=== PATIENT | male | born 1980 | race Caucasian/White ===

== ENCOUNTER 2021-11-26 09:01 | Inpatient (IN) | payer MEDICARE, MEDICAID ==
[~2021-11-26] VITALS: Ht 177.8 cm; Wt 54.8 kg
[~2021-11-26 09:01] MED LIST: LISI20TA28; WARF5TAB71
[2021-11-26] MEDS ORDERED: SODIUM CHLORIDE 0.9% 1,000 ML IV ONE (09:15)
[2021-11-26] MEDS ORDERED: DIPHENOXYLATE W/ATROPINE 2.5 MG TAB PO ONE (09:30)
[2021-11-26 10:07] LABS: Albumin 3.2 g/dL (3.4-5.0); Calcium 9.6 mg/dL (8.5-10.1); Potassium 3.2 mmol/L (3.5-5.1)
[2021-11-26 10:08] LABS: Basophils # (auto) 0.3 10 ^3/uL (0-0.2); Basophils % (auto) 3.1 % (0.0-2.0); Eosinophils # (auto) 0.1 10 ^3/uL (0-0.8); Eosinophils % (auto) 1.7 % (0.0-7.0); Hemoglobin 14.3 g/dL (13.5-17.5); Lymphocytes % (auto) 11.8 % (10.0-50.0); Mean Corpuscular Hemoglobin 30.4 pg (28.0-32.0); Mean Corpuscular Hgb Conc. 34.8 g/dL (32.0-36.0); Mean Corpuscular Volume 87.4 fL (80.0-100.0); Monocytes # (auto) 0.6 10 ^3/uL (0-1.3); Monocytes % (auto) 7.2 % (0.0-12.0); Neutrophils # (auto) 6.2 10 ^3/uL (1.6-8.6); Neutrophils % (auto) 76.2 % (37.0-80.0); Nucleated Red Blood Cells % 0.3 %; Red Blood Cells 4.69 10^6/uL (4.5-5.90); Red Cell Distribution Width 13.4 % (11.8-14.3); White Blood Cell 8.1 10^3/uL (4.4-10.8)
[2021-11-26 10:13] LABS: BUN/Creatinine Ratio 14.5; Bilirubin, Total 0.5 mg/dL (0.2-1.0)
[2021-11-26] MEDS ORDERED: DOCUSATE SOD 100 MG CAP PO PRN (10:15)
[2021-11-26] MEDS ORDERED: ACETAMINOPHEN 325 MG TAB PO PRN (10:15)
[2021-11-26] MEDS: MORPHINE SULFATE 4 MG/ML SYR/VIAL IV PRN ×3 (12:43→20:33)
[2021-11-26 14:00] VITALS: BP 117/91
[2021-11-26 14:29] VITALS: BP 117/91
[2021-11-26] MEDS: SODIUM CHLORIDE 0.9% 1,000 ML IV SCH (15:00)
[2021-11-26 16:00] VITALS: BP 132/84
[2021-11-26] MEDS: ONDANSETRON HCL 4 MG/2 ML VIAL IV PRN (20:34)
[2021-11-26] MEDS: PANTOPRAZOLE 40 MG/10 ML VIAL INJ IV SCH (23:37)
[2021-11-27] MEDS: SODIUM CHLORIDE 0.9% 1,000 ML IV SCH (01:02)
[2021-11-27 01:48] VITALS: BP 148/102
[2021-11-27 05:00] VITALS: BP 133/73
[2021-11-27 09:00] VITALS: BP 150/65
[2021-11-27] MEDS ORDERED: cefTRIAXone 1GM/50ML D5W 50 ML IV ONE (09:45)
[2021-11-27] MEDS ORDERED: ENOXAPARIN SOD 30 MG/0.3 ML SYRINGE SC SCH (10:00)
[2021-11-27] MEDS: PANTOPRAZOLE 40 MG/10 ML VIAL INJ IV SCH ×2 (10:00→20:10)
[2021-11-27 10:58] LABS: Albumin 2.9 g/dL (3.4-5.0); Calcium 8.7 mg/dL (8.5-10.1); Potassium 3.3 mmol/L (3.5-5.1)
[2021-11-27 11:03] LABS: BUN/Creatinine Ratio 13.6; Bilirubin, Total 0.6 mg/dL (0.2-1.0)
[2021-11-27] MEDS ORDERED: amLODIPine BESYLATE 5 MG TAB PO ONE (12:00)
[2021-11-27] MEDS: LACTATED RINGER'S 1,000 ML IV SCH (12:00)
[2021-11-27 12:33] VITALS: BP 154/93
[2021-11-27] MEDS: metroNIDAZOLE 500MG/100ML 100 ML IV SCH ×2 (14:00→20:10)
[2021-11-27 16:44] VITALS: BP 155/92
[2021-11-27] MEDS: MORPHINE SULFATE 4 MG/ML SYR/VIAL IV PRN (20:10)
[2021-11-27] MEDS: ONDANSETRON HCL 4 MG/2 ML VIAL IV PRN (20:10)
[2021-11-27] MEDS: HYDROcodone-ACET 5/325MG TAB PO PRN (21:51)
[2021-11-27 21:54] VITALS: BP 144/96
[2021-11-28] MEDS: LACTATED RINGER'S 1,000 ML IV SCH (01:30)
[2021-11-28] MEDS: MORPHINE SULFATE 4 MG/ML SYR/VIAL IV PRN ×4 (04:44→22:51)
[2021-11-28] MEDS: ONDANSETRON HCL 4 MG/2 ML VIAL IV PRN ×4 (04:45→22:52)
[2021-11-28] MEDS: metroNIDAZOLE 500MG/100ML 100 ML IV SCH ×3 (05:04→22:50)
[2021-11-28 05:12] VITALS: BP 143/95
[2021-11-28 06:19] LABS: Albumin 2.8 g/dL (3.4-5.0); BUN/Creatinine Ratio 11.8; Calcium 8.7 mg/dL (8.5-10.1); Potassium 3.5 mmol/L (3.5-5.1)
[2021-11-28 06:22] LABS: Bilirubin, Total 0.5 mg/dL (0.2-1.0); Total Protein 6.9 g/dL (6.4-8.2)
[2021-11-28 06:40] LABS: INR 2.13 (0.9-1.15)
[2021-11-28 08:30] VITALS: BP 150/108
[2021-11-28] MEDS: PANTOPRAZOLE 40 MG/10 ML VIAL INJ IV SCH ×2 (10:11→22:50)
[2021-11-28] MEDS: amLODIPine BESYLATE 5 MG TAB PO SCH (10:12)
[2021-11-28] MEDS: cefTRIAXone 1GM/50ML D5W 50 ML IV SCH (10:13)
[2021-11-28] MEDS: ENOXAPARIN SOD 40 MG/0.4 ML SYRINGE SC SCH (10:14)
[2021-11-28 12:30] VITALS: BP 146/115
[2021-11-28 17:00] VITALS: BP 165/93
[2021-11-28] MEDS: hydrALAZINE HCL 20 MG/ML VL IV PRN (18:15)
[2021-11-28 22:00] VITALS: BP 154/96
[2021-11-29] MEDS: TEMAZEPAM 15 MG CAP PO PRN
[2021-11-29] MEDS: MORPHINE SULFATE 4 MG/ML SYR/VIAL IV PRN ×4 (04:48→20:05)
[2021-11-29] MEDS: ONDANSETRON HCL 4 MG/2 ML VIAL IV PRN (04:49)
[2021-11-29 05:00] VITALS: BP 152/48
[2021-11-29 05:34] LABS: Basophils # (auto) 0 10 ^3/uL (0-0.2); Basophils % (auto) 0.6 % (0.0-2.0); Eosinophils # (auto) 0 10 ^3/uL (0-0.8); Eosinophils % (auto) 0.6 % (0.0-7.0); Hematocrit 39.9 % (41.0-53.0); Lymphocytes # (auto) 1.3 10 ^3/uL (0.4-5.4); Lymphocytes % (auto) 15.5 % (10.0-50.0); Mean Corpuscular Hemoglobin 30.4 pg (28.0-32.0); Mean Corpuscular Volume 86.8 fL (80.0-100.0); Monocytes # (auto) 0.8 10 ^3/uL (0-1.3); Monocytes % (auto) 8.9 % (0.0-12.0); Neutrophils # (auto) 6.3 10 ^3/uL (1.6-8.6); Neutrophils % (auto) 74.4 % (37.0-80.0); Nucleated Red Blood Cells % 0.1 %; Red Cell Distribution Width 13.9 % (11.8-14.3); White Blood Cell 8.4 10^3/uL (4.4-10.8)
[2021-11-29 05:39] VITALS: BP 109/73
[2021-11-29] MEDS: metroNIDAZOLE 500MG/100ML 100 ML IV SCH ×4 (05:53→22:00)
[2021-11-29 09:00] VITALS: BP 150/102
[2021-11-29] MEDS: ENOXAPARIN SOD 40 MG/0.4 ML SYRINGE SC SCH (09:23)
[2021-11-29] MEDS: LACTULOSE 20Gm/30ML SOLN PO SCH ×3 (09:24→22:00)
[2021-11-29] MEDS: PANTOPRAZOLE 40 MG/10 ML VIAL INJ IV SCH ×3 (09:24→22:00)
[2021-11-29] MEDS: amLODIPine BESYLATE 5 MG TAB PO SCH (09:24)
[2021-11-29] MEDS: cefTRIAXone 1GM/50ML D5W 50 ML IV SCH (09:24)
[2021-11-29] MEDS: HYDROcodone-ACET 5/325MG TAB PO PRN (12:32)
[2021-11-29 13:00] VITALS: BP 138/94
[2021-11-29] MEDS ORDERED: AMLO-489 PO (13:41)
[2021-11-29] MEDS ORDERED: TRAZ1TAB12 PO (13:41)
[2021-11-29] MEDS ORDERED: ZOLP10TA6 PO (13:41)
[2021-11-29] MEDS ORDERED: BACL20TA PO (13:41)
[2021-11-29] MEDS: BACLOFEN 10 MG TAB PO SCH ×2 (14:49→21:13)
[2021-11-29 17:00] VITALS: BP 138/95
[2021-11-29] MEDS ORDERED: LISI-716 PO (18:36)
[2021-11-29] MEDS ORDERED: HYDR-4072 PO (18:36)
[2021-11-29] MEDS ORDERED: LORA1TAB23 PO (18:36)
[2021-11-29] MEDS ORDERED: WARF5TAB8 PO (18:36)
[2021-11-29] MEDS ORDERED: ENOXAPARIN SOD 60 MG/0.6 ML SYRINGE SC ONE (20:30)
[2021-11-29 22:00] VITALS: BP 145/92
[2021-11-29] MEDS: ENOXAPARIN SOD 60 MG/0.6 ML SYRINGE SC SCH (22:00)
[2021-11-30 05:00] VITALS: BP 140/71
[2021-11-30] MEDS: BACLOFEN 10 MG TAB PO SCH ×2 (05:26→15:22)
[2021-11-30] MEDS: metroNIDAZOLE 500MG/100ML 100 ML IV SCH ×2 (05:26→15:02)
[2021-11-30 06:33] LABS: Basophils # (auto) 0 10 ^3/uL (0-0.2); Basophils % (auto) 0.7 % (0.0-2.0); Eosinophils # (auto) 0.1 10 ^3/uL (0-0.8); Eosinophils % (auto) 1.9 % (0.0-7.0); Hematocrit 37.9 % (41.0-53.0); Hemoglobin 13.5 g/dL (13.5-17.5); Lymphocytes % (auto) 14.9 % (10.0-50.0); Mean Corpuscular Hemoglobin 30.8 pg (28.0-32.0); Mean Corpuscular Hgb Conc. 35.7 g/dL (32.0-36.0); Mean Corpuscular Volume 86.5 fL (80.0-100.0); Monocytes # (auto) 0.7 10 ^3/uL (0-1.3); Monocytes % (auto) 10.2 % (0.0-12.0); Neutrophils # (auto) 4.7 10 ^3/uL (1.6-8.6); Neutrophils % (auto) 72.3 % (37.0-80.0); Nucleated Red Blood Cells % 0.1 %; Red Blood Cells 4.38 10^6/uL (4.5-5.90); Red Cell Distribution Width 13.8 % (11.8-14.3); White Blood Cell 6.5 10^3/uL (4.4-10.8)
[2021-11-30 06:40] LABS: INR 1.85 (0.9-1.15)
[2021-11-30 06:50] LABS: Albumin 2.6 g/dL (3.4-5.0); BUN/Creatinine Ratio 7.2; Bilirubin, Total 0.4 mg/dL (0.2-1.0); Calcium 8.4 mg/dL (8.5-10.1); Total Protein 6.4 g/dL (6.4-8.2)
[2021-11-30 07:50] LABS: Potassium 2.6 mmol/L (3.5-5.1)
[2021-11-30] MEDS ORDERED: POTASSIUM CHL 20 Meq TABLET PO ONE (08:00)
[2021-11-30] MEDS: HYDROcodone-ACET 5/325MG TAB PO PRN (08:04)
[2021-11-30] MEDS: LACTULOSE 20Gm/30ML SOLN PO SCH (08:06)
[2021-11-30] MEDS: PANTOPRAZOLE 40 MG/10 ML VIAL INJ IV SCH (08:23)
[2021-11-30] MEDS: POTASSIUM CHL 10MEQ/50ML 50 ML IV SCH ×4 (08:23→13:54)
[2021-11-30] MEDS: FLORASTOR (S. BOULARDII) 250 MG CAP PO SCH (08:23)
[2021-11-30] MEDS: amLODIPine BESYLATE 5 MG TAB PO SCH (08:24)
[2021-11-30] MEDS: ENOXAPARIN SOD 60 MG/0.6 ML SYRINGE SC SCH (08:24)
[2021-11-30 09:20] VITALS: BP 163/103
[2021-11-30] MEDS ORDERED: amLODIPine BESYLATE 5 MG TAB PO SCH (10:00)
[2021-11-30 12:37] VITALS: BP 152/104
[2021-11-30] MEDS: MORPHINE SULFATE INJECTION 2 MG/ML SYRG IV PRN ×2 (13:05→20:44)
[2021-11-30 13:49] LABS: Urine Bacteria NONE SEEN /hpf (None Seen); Urine Blood 1+ /uL (Negative); Urine Hyaline Cast FEW /lpf (0 - 2); Urine Specific Gravity 1.017 (1.001-1.035); Urine WBC 3 /hpf (0 - 3)
[2021-11-30 14:07] LABS: Protein, Urine 1312.3 mg/dL (0.0-11.9)
[2021-11-30 14:57] VITALS: BP 144/94
[2021-11-30] MEDS ORDERED: LORazepam 2MG/ML-1ML VIAL IV PRN (15:00)
[2021-11-30] MEDS: ONDANSETRON HCL 4 MG/2 ML VIAL IV PRN ×2 (16:43→16:46)
[2021-11-30] MEDS ORDERED: WARFARIN SODIUM 1 MG TAB PO ONE (17:00)
[2021-11-30] MEDS: cefTRIAXone 1GM/50ML D5W 50 ML IV SCH (17:30)
[2021-11-30 22:00] VITALS: BP 139/84
[2021-11-30 22:47] LABS: Albumin 2.7 g/dL (3.4-5.0); BUN/Creatinine Ratio 6.1; Calcium 8.3 mg/dL (8.5-10.1); Magnesium 2.1 mg/dL (1.6-2.6); Potassium 3.5 mmol/L (3.5-5.1)
[2021-11-30 22:50] LABS: Bilirubin, Total 0.3 mg/dL (0.2-1.0); Total Protein 6.2 g/dL (6.4-8.2)
[2021-12-01 05:00] VITALS: BP 136/67
[2021-12-01] MEDS: metroNIDAZOLE 500MG/100ML 100 ML IV SCH ×3 (06:00→22:33)
[2021-12-01] MEDS: MORPHINE SULFATE INJECTION 2 MG/ML SYRG IV PRN ×4 (06:42→23:55)
[2021-12-01 07:04] LABS: Basophils # (auto) 0 10 ^3/uL (0-0.2); Basophils % (auto) 0.6 % (0.0-2.0); Eosinophils # (auto) 0.1 10 ^3/uL (0-0.8); Eosinophils % (auto) 1.7 % (0.0-7.0); Hematocrit 36.1 % (41.0-53.0); Hemoglobin 12.6 g/dL (13.5-17.5); Lymphocytes # (auto) 1.1 10 ^3/uL (0.4-5.4); Lymphocytes % (auto) 18.3 % (10.0-50.0); Mean Corpuscular Hemoglobin 30.4 pg (28.0-32.0); Mean Corpuscular Hgb Conc. 34.8 g/dL (32.0-36.0); Mean Corpuscular Volume 87.4 fL (80.0-100.0); Monocytes # (auto) 0.7 10 ^3/uL (0-1.3); Neutrophils # (auto) 4.1 10 ^3/uL (1.6-8.6); Neutrophils % (auto) 68.4 % (37.0-80.0); Nucleated Red Blood Cells % 0.1 %; Red Blood Cells 4.14 10^6/uL (4.5-5.90); Red Cell Distribution Width 13.8 % (11.8-14.3)
[2021-12-01 07:14] LABS: INR 2.32 (0.9-1.15); Partial Thromboplastin Time 47.7 sec (23.6-33.0)
[2021-12-01 08:00] VITALS: BP 115/89
[2021-12-01] MEDS: cefTRIAXone 1GM/50ML D5W 50 ML IV SCH (08:48)
[2021-12-01] MEDS: PANTOPRAZOLE 40 MG/10 ML VIAL INJ IV SCH ×2 (09:34→22:06)
[2021-12-01] MEDS: FLORASTOR (S. BOULARDII) 250 MG CAP PO SCH (09:34)
[2021-12-01] MEDS: ENOXAPARIN SOD 60 MG/0.6 ML SYRINGE SC SCH ×2 (09:35→22:06)
[2021-12-01] MEDS: HYDROcodone-ACET 5/325MG TAB PO PRN ×2 (09:35→19:57)
[2021-12-01] MEDS: amLODIPine BESYLATE 5 MG TAB PO SCH (09:37)
[2021-12-01] MEDS: ONDANSETRON HCL 4 MG/2 ML VIAL IV PRN (12:15)
[2021-12-01 12:30] VITALS: BP 116/80
[2021-12-01 17:00] VITALS: BP 112/72
[2021-12-01 19:58] VITALS: BP 123/81
[2021-12-02] MEDS: MORPHINE SULFATE INJECTION 2 MG/ML SYRG IV PRN ×4 (04:15→22:06)
[2021-12-02 04:50] VITALS: BP 140/87
[2021-12-02 04:54] VITALS: BP 115/89
[2021-12-02] MEDS: metroNIDAZOLE 500MG/100ML 100 ML IV SCH ×3 (06:17→22:40)
[2021-12-02 07:16] LABS: Basophils # (auto) 0 10 ^3/uL (0-0.2); Basophils % (auto) 0.8 % (0.0-2.0); Eosinophils # (auto) 0.1 10 ^3/uL (0-0.8); Eosinophils % (auto) 2.2 % (0.0-7.0); Hematocrit 35.7 % (41.0-53.0); Hemoglobin 12.1 g/dL (13.5-17.5); Lymphocytes # (auto) 1.4 10 ^3/uL (0.4-5.4); Lymphocytes % (auto) 25.2 % (10.0-50.0); Mean Corpuscular Hemoglobin 29.7 pg (28.0-32.0); Mean Corpuscular Hgb Conc. 33.9 g/dL (32.0-36.0); Mean Corpuscular Volume 87.7 fL (80.0-100.0); Monocytes # (auto) 0.7 10 ^3/uL (0-1.3); Monocytes % (auto) 11.7 % (0.0-12.0); Neutrophils # (auto) 3.4 10 ^3/uL (1.6-8.6); Neutrophils % (auto) 60.1 % (37.0-80.0); Nucleated Red Blood Cells % 0.1 %; Red Blood Cells 4.07 10^6/uL (4.5-5.90); Red Cell Distribution Width 14.1 % (11.8-14.3); White Blood Cell 5.6 10^3/uL (4.4-10.8)
[2021-12-02 07:22] LABS: INR 3.18 (0.9-1.15); Partial Thromboplastin Time 50.4 sec (23.6-33.0)
[2021-12-02 07:26] LABS: Calcium 7.8 mg/dL (8.5-10.1)
[2021-12-02 07:28] LABS: BUN/Creatinine Ratio 4.3
[2021-12-02 07:39] LABS: Potassium 2.8 mmol/L (3.5-5.1)
[2021-12-02] MEDS ORDERED: POTASSIUM CHL 20 Meq TABLET PO ONE ×2 (08:15→12:15)
[2021-12-02 08:30] VITALS: BP 143/94
[2021-12-02] MEDS: HYDROcodone-ACET 5/325MG TAB PO PRN (08:38)
[2021-12-02] MEDS: cefTRIAXone 1GM/50ML D5W 50 ML IV SCH (09:54)
[2021-12-02] MEDS: PANTOPRAZOLE 40 MG/10 ML VIAL INJ IV SCH ×2 (09:56→22:06)
[2021-12-02] MEDS: FLORASTOR (S. BOULARDII) 250 MG CAP PO SCH (09:56)
[2021-12-02] MEDS: amLODIPine BESYLATE 5 MG TAB PO SCH (09:56)
[2021-12-02 13:00] VITALS: BP 149/105
[2021-12-02 17:00] VITALS: BP 145/99
[2021-12-02 22:00] VITALS: BP 160/105
[2021-12-03] MEDS: MORPHINE SULFATE INJECTION 2 MG/ML SYRG IV PRN ×3 (02:30→12:49)
[2021-12-03 05:00] VITALS: BP 154/108
[2021-12-03] MEDS: metroNIDAZOLE 500MG/100ML 100 ML IV SCH ×2 (06:00→13:27)
[2021-12-03 09:00] VITALS: BP 151/103
[2021-12-03] MEDS: amLODIPine BESYLATE 5 MG TAB PO SCH (10:04)
[2021-12-03] MEDS: PANTOPRAZOLE 40 MG/10 ML VIAL INJ IV SCH ×2 (10:04→21:37)
[2021-12-03] MEDS: cefTRIAXone 1GM/50ML D5W 50 ML IV SCH (10:05)
[2021-12-03] MEDS: FLORASTOR (S. BOULARDII) 250 MG CAP PO SCH (10:05)
[2021-12-03] MEDS: HYDROcodone-ACET 5/325MG TAB PO PRN ×2 (10:05→21:37)
[2021-12-03 10:55] LABS: INR 2.58 (0.9-1.15); Partial Thromboplastin Time 43.3 sec (23.6-33.0)
[2021-12-03 11:07] LABS: Basophils # (auto) 0.1 10 ^3/uL (0-0.2); Basophils % (auto) 2.3 % (0.0-2.0); Eosinophils # (auto) 0 10 ^3/uL (0-0.8); Eosinophils % (auto) 0.8 % (0.0-7.0); Hematocrit 39.7 % (41.0-53.0); Hemoglobin 13.6 g/dL (13.5-17.5); Lymphocytes # (auto) 0.9 10 ^3/uL (0.4-5.4); Lymphocytes % (auto) 18.8 % (10.0-50.0); Mean Corpuscular Hemoglobin 30.1 pg (28.0-32.0); Mean Corpuscular Hgb Conc. 34.3 g/dL (32.0-36.0); Mean Corpuscular Volume 87.8 fL (80.0-100.0); Monocytes # (auto) 0.5 10 ^3/uL (0-1.3); Monocytes % (auto) 10.6 % (0.0-12.0); Neutrophils # (auto) 3.2 10 ^3/uL (1.6-8.6); Neutrophils % (auto) 67.5 % (37.0-80.0); Nucleated Red Blood Cells % 0.4 %; Red Blood Cells 4.52 10^6/uL (4.5-5.90); Red Cell Distribution Width 14.1 % (11.8-14.3); White Blood Cell 4.8 10^3/uL (4.4-10.8)
[2021-12-03 12:30] VITALS: BP 156/101
[2021-12-03] MEDS: hydrALAZINE HCL 20 MG/ML VL IV PRN (12:47)
[2021-12-03] MEDS ORDERED: chlorproMAZINE HCL 25 MG TAB PO PRN (13:00)
[2021-12-03] MEDS ORDERED: cloNIDine HCL 0.1 MG TAB PO ONE (14:15)
[2021-12-03 15:20] VITALS: BP 132/90
[2021-12-03] MEDS ORDERED: WARFARIN SODIUM 1 MG TAB PO ONE (17:00)
[2021-12-03 17:35] VITALS: BP 133/93
[2021-12-03 22:00] VITALS: BP 135/97
[2021-12-04] MEDS: TEMAZEPAM 15 MG CAP PO PRN ×2 (01:59→22:11)
[2021-12-04 02:00] VITALS: BP 126/89
[2021-12-04 05:00] VITALS: BP 111/78
[2021-12-04] MEDS: HYDROcodone-ACET 5/325MG TAB PO PRN (06:49)
[2021-12-04 07:49] LABS: INR 2.59 (0.9-1.15); Partial Thromboplastin Time 42.1 sec (23.6-33.0)
[2021-12-04 07:50] LABS: Basophils # (auto) 0 10 ^3/uL (0-0.2); Basophils % (auto) 0.5 % (0.0-2.0); Eosinophils # (auto) 0.1 10 ^3/uL (0-0.8); Eosinophils % (auto) 1.6 % (0.0-7.0); Hematocrit 35.5 % (41.0-53.0); Hemoglobin 12.4 g/dL (13.5-17.5); Lymphocytes # (auto) 0.9 10 ^3/uL (0.4-5.4); Lymphocytes % (auto) 18.6 % (10.0-50.0); Mean Corpuscular Hemoglobin 30.5 pg (28.0-32.0); Mean Corpuscular Hgb Conc. 34.9 g/dL (32.0-36.0); Mean Corpuscular Volume 87.4 fL (80.0-100.0); Monocytes # (auto) 0.7 10 ^3/uL (0-1.3); Monocytes % (auto) 13.9 % (0.0-12.0); Neutrophils # (auto) 3.2 10 ^3/uL (1.6-8.6); Neutrophils % (auto) 65.4 % (37.0-80.0); Nucleated Red Blood Cells % 0.2 %; Red Blood Cells 4.07 10^6/uL (4.5-5.90); White Blood Cell 4.9 10^3/uL (4.4-10.8)
[2021-12-04] MEDS: amLODIPine BESYLATE 5 MG TAB PO SCH (09:18)
[2021-12-04] MEDS: PANTOPRAZOLE 40 MG/10 ML VIAL INJ IV SCH ×2 (09:18→21:38)
[2021-12-04] MEDS: cefTRIAXone 1GM/50ML D5W 50 ML IV SCH (09:18)
[2021-12-04] MEDS: FLORASTOR (S. BOULARDII) 250 MG CAP PO SCH (09:19)
[2021-12-04 09:25] VITALS: BP 139/91
[2021-12-04] MEDS: MORPHINE SULFATE INJECTION 2 MG/ML SYRG IV PRN ×3 (09:29→19:03)
[2021-12-04 12:36] VITALS: BP 128/90
[2021-12-04 16:46] VITALS: BP 144/94
[2021-12-04] MEDS ORDERED: WARFARIN SODIUM 1 MG TAB PO ONE (17:00)
[2021-12-04 22:00] VITALS: BP 144/90
[2021-12-05 05:03] VITALS: BP 145/92
[2021-12-05] MEDS: HYDROcodone-ACET 5/325MG TAB PO PRN (06:00)
[2021-12-05 07:02] LABS: INR 1.76 (0.9-1.15)
[2021-12-05] MEDS: MORPHINE SULFATE INJECTION 2 MG/ML SYRG IV PRN ×3 (07:55→17:11)
[2021-12-05 08:47] VITALS: BP 145/92
[2021-12-05] MEDS: PANTOPRAZOLE 40 MG/10 ML VIAL INJ IV SCH ×2 (08:49→21:17)
[2021-12-05] MEDS: FLORASTOR (S. BOULARDII) 250 MG CAP PO SCH (08:49)
[2021-12-05] MEDS: amLODIPine BESYLATE 5 MG TAB PO SCH (08:49)
[2021-12-05] MEDS: cefTRIAXone 1GM/50ML D5W 50 ML IV SCH (08:57)
[2021-12-05 11:46] VITALS: BP 138/82
[2021-12-05 16:25] VITALS: BP 164/89
[2021-12-05] MEDS: hydrALAZINE HCL 20 MG/ML VL IV PRN (16:31)
[2021-12-05 17:00] VITALS: BP 164/89
[2021-12-05] MEDS ORDERED: WARFARIN SODIUM 1 MG TAB PO ONE (17:00)
[2021-12-05] MEDS ORDERED: LORazepam 2MG/ML-1ML VIAL IV PRN (19:15)
[2021-12-05] MEDS: METOPROLOL TARTRATE 1MG/1ML-5ML VIAL IV PRN (20:15)
[2021-12-05 21:00] VITALS: BP 146/93
[2021-12-06] MEDS: HYDROcodone-ACET 5/325MG TAB PO PRN ×3 (01:48→22:30)
[2021-12-06 05:00] VITALS: BP 133/86
[2021-12-06] MEDS: MORPHINE SULFATE INJECTION 2 MG/ML SYRG IV PRN ×3 (06:04→20:00)
[2021-12-06 06:31] LABS: INR 2.41 (0.9-1.15)
[2021-12-06 06:37] LABS: Basophils # (auto) 0 10 ^3/uL (0-0.2); Eosinophils # (auto) 0.1 10 ^3/uL (0-0.8); Eosinophils % (auto) 2.3 % (0.0-7.0); Hemoglobin 12.8 g/dL (13.5-17.5); Lymphocytes # (auto) 1.4 10 ^3/uL (0.4-5.4); Lymphocytes % (auto) 28.8 % (10.0-50.0); Mean Corpuscular Hemoglobin 30.2 pg (28.0-32.0); Mean Corpuscular Hgb Conc. 34.6 g/dL (32.0-36.0); Mean Corpuscular Volume 87.4 fL (80.0-100.0); Monocytes # (auto) 0.5 10 ^3/uL (0-1.3); Monocytes % (auto) 11.2 % (0.0-12.0); Neutrophils # (auto) 2.7 10 ^3/uL (1.6-8.6); Neutrophils % (auto) 56.7 % (37.0-80.0); Nucleated Red Blood Cells % 0.4 %; Red Blood Cells 4.24 10^6/uL (4.5-5.90); Red Cell Distribution Width 14.1 % (11.8-14.3); White Blood Cell 4.7 10^3/uL (4.4-10.8)
[2021-12-06 08:31] VITALS: BP 148/108
[2021-12-06] MEDS: cefTRIAXone 1GM/50ML D5W 50 ML IV SCH (09:00)
[2021-12-06] MEDS: PANTOPRAZOLE 40 MG/10 ML VIAL INJ IV SCH ×2 (10:05→22:29)
[2021-12-06] MEDS: METOPROLOL TARTRATE 1MG/1ML-5ML VIAL IV PRN (10:05)
[2021-12-06] MEDS: FLORASTOR (S. BOULARDII) 250 MG CAP PO SCH (10:05)
[2021-12-06 12:30] VITALS: BP 122/87
[2021-12-06 16:37] VITALS: BP 147/103
[2021-12-06] MEDS ORDERED: WARFARIN SODIUM 1 MG TAB PO ONE (17:00)
[2021-12-06 22:00] VITALS: BP 135/76
[2021-12-07] MEDS: MORPHINE SULFATE INJECTION 2 MG/ML SYRG IV PRN ×2 (01:07→06:07)
[2021-12-07] MEDS: TEMAZEPAM 15 MG CAP PO PRN ×2 (01:12→21:17)
[2021-12-07 05:00] VITALS: BP 137/87
[2021-12-07 07:05] LABS: INR 3.27 (0.9-1.15)
[2021-12-07 07:17] LABS: Potassium 3.2 mmol/L (3.5-5.1)
[2021-12-07 07:29] LABS: Albumin 2.3 g/dL (3.4-5.0); Bilirubin, Total 0.2 mg/dL (0.2-1.0); Total Protein 5.8 g/dL (6.4-8.2)
[2021-12-07 08:00] VITALS: BP 165/100
[2021-12-07] MEDS: cefTRIAXone 1GM/50ML D5W 50 ML IV SCH (09:00)
[2021-12-07] MEDS: HYDROcodone-ACET 5/325MG TAB PO PRN (09:44)
[2021-12-07] MEDS: FLORASTOR (S. BOULARDII) 250 MG CAP PO SCH (09:45)
[2021-12-07] MEDS: PANTOPRAZOLE 40 MG/10 ML VIAL INJ IV SCH ×2 (10:03→21:17)
[2021-12-07] MEDS: hydrALAZINE HCL 20 MG/ML VL IV PRN (10:04)
[2021-12-07 12:00] VITALS: BP 144/88
[2021-12-07] MEDS: ACETAMINOPHEN 325 MG TAB PO PRN ×2 (13:30→18:39)
[2021-12-07 15:41] VITALS: BP 151/86
[2021-12-07] MEDS ORDERED: WARF1TAB36 PO (16:16)
[2021-12-07] MEDS ORDERED: KEP500T PO (16:16)
[2021-12-07 22:00] VITALS: BP 139/87
[2021-12-08] MEDS: ACETAMINOPHEN 325 MG TAB PO PRN ×2 (03:39→10:18)
[2021-12-08 05:00] VITALS: BP 114/72
[2021-12-08 05:46] LABS: Basophils # (auto) 0 10 ^3/uL (0-0.2); Basophils % (auto) 0.9 % (0.0-2.0); Eosinophils # (auto) 0.1 10 ^3/uL (0-0.8); Eosinophils % (auto) 2.6 % (0.0-7.0); Hemoglobin 13.7 g/dL (13.5-17.5); Lymphocytes # (auto) 1.4 10 ^3/uL (0.4-5.4); Lymphocytes % (auto) 30.4 % (10.0-50.0); Mean Corpuscular Hemoglobin 30.3 pg (28.0-32.0); Mean Corpuscular Hgb Conc. 34.2 g/dL (32.0-36.0); Mean Corpuscular Volume 88.5 fL (80.0-100.0); Monocytes # (auto) 0.5 10 ^3/uL (0-1.3); Monocytes % (auto) 11.7 % (0.0-12.0); Neutrophils # (auto) 2.5 10 ^3/uL (1.6-8.6); Neutrophils % (auto) 54.4 % (37.0-80.0); Nucleated Red Blood Cells % 0.1 %; Red Blood Cells 4.52 10^6/uL (4.5-5.90); Red Cell Distribution Width 14.2 % (11.8-14.3); White Blood Cell 4.7 10^3/uL (4.4-10.8)
[2021-12-08 06:01] LABS: INR 2.95 (0.9-1.15)
[2021-12-08 09:00] VITALS: BP 139/91
[2021-12-08] MEDS: cefTRIAXone 1GM/50ML D5W 50 ML IV SCH (09:00)
[2021-12-08] MEDS: PANTOPRAZOLE 40 MG/10 ML VIAL INJ IV SCH (10:00)
[2021-12-08] MEDS: FLORASTOR (S. BOULARDII) 250 MG CAP PO SCH (10:00)
[2021-12-08 13:00] VITALS: BP 137/73
[2021-12-08 14:34] VITALS: BP 137/73
[2021-12-08 17:00] VITALS: BP 115/85
== END 2021-12-08 18:39 | disposition home health service (06) | DRG 392 ==
LOC: EDBD 09:01 → ER 09:01 → TELE 10:14 → WEST WING 13:42 → TELE-WESTW 11-28 18:50
PROVIDERS: ADMIT Registered Nurse; ATTEND Internal Medicine
PROC: 05H933Z Insertion of Infusion Device into Right Brachial Vein, Percutaneous Approach (ICD-10-PCS; principal; 2021-11-30)
PROC: B54MZZA Ultrasonography of Right Upper Extremity Veins, Guidance (ICD-10-PCS; 2021-11-30)
DX: K52.9 Noninfective gastroenteritis and colitis, unspecified (principal); N17.9 Acute kidney failure, unspecified; D68.59 Other primary thrombophilia; I31.3 Pericardial effusion (noninflammatory); D68.9 Coagulation defect, unspecified; I50.22 Chronic systolic (congestive) heart failure; I13.0 Hypertensive heart and chronic kidney disease with heart failure and stage 1 through stage 4 chronic kidney disease, or unspecified chronic kidney disease; E86.0 Dehydration; K21.9 Gastro-esophageal reflux disease without esophagitis; I73.9 Peripheral vascular disease, unspecified; F12.90 Cannabis use, unspecified, uncomplicated; I51.3 Intracardiac thrombosis, not elsewhere classified; Z20.822 Contact with and (suspected) exposure to COVID-19; F20.9 Schizophrenia, unspecified; F31.9 Bipolar disorder, unspecified; N18.31 Chronic kidney disease, stage 3a; F17.210 Nicotine dependence, cigarettes, uncomplicated; G40.909 Epilepsy, unspecified, not intractable, without status epilepticus; I25.10 Atherosclerotic heart disease of native coronary artery without angina pectoris; E87.6 Hypokalemia; G89.4 Chronic pain syndrome; Z74.01 Bed confinement status; Z79.899 Other long term (current) drug therapy; Z86.73 Personal history of transient ischemic attack (TIA), and cerebral infarction without residual deficits; Z82.3 Family history of stroke; Z82.49 Family history of ischemic heart disease and other diseases of the circulatory system; Z83.3 Family history of diabetes mellitus; Z86.711 Personal history of pulmonary embolism; Z86.718 Personal history of other venous thrombosis and embolism; Z89.519 Acquired absence of unspecified leg below knee; Z89.611 Acquired absence of right leg above knee; Z89.612 Acquired absence of left leg above knee; Z95.828 Presence of other vascular implants and grafts; Z79.01 Long term (current) use of anticoagulants; Z91.19 Patient's noncompliance with other medical treatment and regimen
CPT/HCPCS: 36415; 70450; 70551; 74176; 76705; 80048; 80053; 81001; 82570; 82962; 83690; 83735; 84132; 84156; 84300; 85025; 85048; 85610; 85730; 87045; 87081; 87427; 87493; 93306; 95819; 96360; C9113; G0378; J0696; J2405; J3490; J7060; Q0161

== ENCOUNTER 2022-05-25 22:31 | Emergency (ER) | payer MEDICARE, MEDICAID ==
[~2022-05-25] VITALS: Ht 177.8 cm; Wt 90.0 kg
[~2022-05-25 22:31] MED LIST changes: +AMLO-489 PO; +BACL20TA PO; +HYDR-4072 PO; +KEP500T PO; +LISI-716 PO; -LISI20TA28; +LORA1TAB23 PO; +WARF1TAB36 PO; -WARF5TAB71; +ZOLP10TA6 PO
[2022-05-26 18:16] VITALS: BP 132/76
== END 2022-05-26 18:26 | disposition home or self-care (01) ==
LOC: EDUNIT# 22:31 → ER 22:31 → EDBD 22:31 → ER 05-26 18:20
DX: S32.008A Other fracture of unspecified lumbar vertebra, initial encounter for closed fracture (principal); Z79.01 Long term (current) use of anticoagulants; Z79.899 Other long term (current) drug therapy; W06.XXXA Fall from bed, initial encounter; Y93.89 Activity, other specified; Y92.89 Other specified places as the place of occurrence of the external cause; Y99.8 Other external cause status
CPT/HCPCS: 72131

== ENCOUNTER 2022-07-07 14:23 | Inpatient (IN) | payer MEDICARE, MEDICAID ==
[~2022-07-07] VITALS: Ht 180.3 cm; Wt 52.8 kg
[2022-07-07] MEDS ORDERED: NALOXONE HCL 1MG/ML 2ML SYRINGE IV ONE ×2 (14:30→15:15)
[2022-07-07] MEDS ORDERED: NALOXONE HCL 2 MG in D5W 5% 495 ML IV ONE (14:30)
[2022-07-07 14:55] LABS: Basophils # (auto) 0.1 10 ^3/uL (0-0.2); Basophils % (auto) 0.8 % (0.0-2.0); Eosinophils # (auto) 0.2 10 ^3/uL (0-0.8); Eosinophils % (auto) 3.2 % (0.0-7.0); Hematocrit 42.1 % (41.0-53.0); Hemoglobin 13.8 g/dL (13.5-17.5); Lymphocytes # (auto) 1.6 10 ^3/uL (0.4-5.4); Lymphocytes % (auto) 23.6 % (10.0-50.0); Mean Corpuscular Hemoglobin 29.6 pg (28.0-32.0); Mean Corpuscular Hgb Conc. 32.7 g/dL (32.0-36.0); Mean Corpuscular Volume 90.4 fL (80.0-100.0); Monocytes # (auto) 0.5 10 ^3/uL (0-1.3); Neutrophils # (auto) 4.5 10 ^3/uL (1.6-8.6); Neutrophils % (auto) 65.4 % (37.0-80.0); Nucleated Red Blood Cells % 0.1 %; Red Blood Cells 4.65 10^6/uL (4.5-5.90); Red Cell Distribution Width 14.4 % (11.8-14.3); White Blood Cell 6.9 10^3/uL (4.4-10.8)
[2022-07-07 15:13] LABS: Albumin 3.2 g/dL (3.4-5.0); Calcium 8.3 mg/dL (8.5-10.1); Potassium 3.9 mmol/L (3.5-5.1)
[2022-07-07 15:14] LABS: Salicylate < 1.7 mg/dL (2.8-20.0)
[2022-07-07 15:17] LABS: BUN/Creatinine Ratio 17.2; Bilirubin, Total 0.2 mg/dL (0.2-1.0); Total Protein 6.5 g/dL (6.4-8.2)
[2022-07-07 15:38] LABS: Acetaminophen < 2.0 ug/mL (10-30)
[2022-07-07 16:47] LABS: Urine Bacteria FEW /hpf (None Seen); Urine Blood 3+ /uL (Negative); Urine Hyaline Cast FEW /lpf (0 - 2); Urine Mucus FEW (None Seen); Urine Specific Gravity 1.023 (1.001-1.035); Urine WBC 11 /hpf (0 - 3)
[2022-07-07 16:56] LABS: Amphetamine Screen, Urine NEGATIVE (NEGATIVE); Barbiturate Scree,Urine NEGATIVE (NEGATIVE); Benzodiazephine Screen, Urine POSITIVE (NEGATIVE); Cannabinoid Screen, Urine NEGATIVE (NEGATIVE); Cocaine Screen, Urine NEGATIVE (NEGATIVE); Opiate Scree,Urine NEGATIVE (NEGATIVE); Phencyclidine Screen, Urine NEGATIVE (NEGATIVE)
[2022-07-07] MEDS ORDERED: cefTRIAXone 1GM/50ML D5W 50 ML IV ONE (17:00)
[2022-07-07] MEDS ORDERED: AZITHROMYCIN 500MG/ 250ML 250 ML IV ONE (19:30)
[2022-07-07] MEDS ORDERED: DOCUSATE SOD 100 MG CAP PO PRN (21:30)
[2022-07-07] MEDS: SODIUM CHLOR 0.9% PF (SALINE LOCK) 10ML VIAL/SYR IV SCH (22:18)
[2022-07-07] MEDS ORDERED: NITROGLYCERIN 0.4 MG SL TAB SL PRN (22:45)
[2022-07-07] MEDS ORDERED: MORPHINE SULFATE INJ 2 MG/ml SYRG IV PRN (22:45)
[2022-07-08] MEDS: SODIUM CHLOR 0.9% PF (SALINE LOCK) 10ML VIAL/SYR IV SCH ×3 (02:09→22:47)
[2022-07-08 05:00] LABS: Basophils # (auto) 0 10 ^3/uL (0-0.2); Basophils % (auto) 0.4 % (0.0-2.0); Eosinophils # (auto) 0.2 10 ^3/uL (0-0.8); Eosinophils % (auto) 2.3 % (0.0-7.0); Hematocrit 39.4 % (41.0-53.0); Hemoglobin 13.3 g/dL (13.5-17.5); Lymphocytes # (auto) 1.3 10 ^3/uL (0.4-5.4); Lymphocytes % (auto) 15.1 % (10.0-50.0); Mean Corpuscular Hemoglobin 30.1 pg (28.0-32.0); Mean Corpuscular Hgb Conc. 33.6 g/dL (32.0-36.0); Mean Corpuscular Volume 89.4 fL (80.0-100.0); Monocytes # (auto) 0.6 10 ^3/uL (0-1.3); Monocytes % (auto) 7.5 % (0.0-12.0); Neutrophils # (auto) 6.3 10 ^3/uL (1.6-8.6); Neutrophils % (auto) 74.7 % (37.0-80.0); Red Blood Cells 4.41 10^6/uL (4.5-5.90); Red Cell Distribution Width 14.2 % (11.8-14.3); White Blood Cell 8.5 10^3/uL (4.4-10.8)
[2022-07-08 05:16] LABS: Potassium 3.9 mmol/L (3.5-5.1)
[2022-07-08 05:20] LABS: Albumin 3.2 g/dL (3.4-5.0); BUN/Creatinine Ratio 19.2; Calcium 8.4 mg/dL (8.5-10.1)
[2022-07-08 05:30] LABS: Bilirubin, Total 0.2 mg/dL (0.2-1.0); Total Protein 6.2 g/dL (6.4-8.2)
[2022-07-08] MEDS: cefTRIAXone 1GM/50ML D5W 50 ML IV SCH (09:36)
[2022-07-08] MEDS: ASPirin 81 mg TAB PO SCH (10:00)
[2022-07-08] MEDS: AZITHROMYCIN 500MG/ 250ML 250 ML IV SCH (10:05)
[2022-07-08] MEDS: HEPARIN SODIUM (PORCINE) 5000 UNITS/ML 1ML VIAL SC SCH ×2 (10:06→22:47)
[2022-07-08] MEDS: D5W/SOD CHLO 0.9% 1,000 ML IV SCH (13:13)
[2022-07-08] MEDS: ONDANSETRON HCL 4 MG/2 ML VIAL IV PRN (16:30)
[2022-07-08] MEDS: MORPHINE SULFATE INJ 2 MG/ml SYRG IV PRN (16:31)
[2022-07-09 05:54] LABS: Basophils # (auto) 0 10 ^3/uL (0-0.2); Basophils % (auto) 0.5 % (0.0-2.0); Eosinophils # (auto) 0.1 10 ^3/uL (0-0.8); Eosinophils % (auto) 1.2 % (0.0-7.0); Hematocrit 42.8 % (41.0-53.0); Lymphocytes % (auto) 13.8 % (10.0-50.0); Mean Corpuscular Hemoglobin 29.8 pg (28.0-32.0); Mean Corpuscular Hgb Conc. 32.7 g/dL (32.0-36.0); Mean Corpuscular Volume 91.2 fL (80.0-100.0); Monocytes # (auto) 0.7 10 ^3/uL (0-1.3); Monocytes % (auto) 9.1 % (0.0-12.0); Neutrophils # (auto) 5.4 10 ^3/uL (1.6-8.6); Neutrophils % (auto) 75.4 % (37.0-80.0); Nucleated Red Blood Cells % 0.2 %; Red Cell Distribution Width 14.3 % (11.8-14.3); White Blood Cell 7.1 10^3/uL (4.4-10.8)
[2022-07-09] MEDS: SODIUM CHLOR 0.9% PF (SALINE LOCK) 10ML VIAL/SYR IV SCH ×3 (06:17→22:22)
[2022-07-09 06:20] LABS: Potassium 4.3 mmol/L (3.5-5.1)
[2022-07-09 06:25] LABS: Albumin 3.4 g/dL (3.4-5.0); BUN/Creatinine Ratio 11.5; Calcium 8.8 mg/dL (8.5-10.1)
[2022-07-09 06:30] LABS: Bilirubin, Total 0.3 mg/dL (0.2-1.0); Total Protein 6.7 g/dL (6.4-8.2)
[2022-07-09] MEDS: cefTRIAXone 1GM/50ML D5W 50 ML IV SCH (09:30)
[2022-07-09] MEDS: D5W/SOD CHLO 0.9% 1,000 ML IV SCH (09:31)
[2022-07-09] MEDS: ASPirin 81 mg TAB PO SCH (10:00)
[2022-07-09] MEDS: AZITHROMYCIN 500MG/ 250ML 250 ML IV SCH (10:21)
[2022-07-09] MEDS: ONDANSETRON HCL 4 MG/2 ML VIAL IV PRN ×2 (10:22→20:58)
[2022-07-09] MEDS: MORPHINE SULFATE INJ 2 MG/ml SYRG IV PRN ×2 (10:23→20:59)
[2022-07-09] MEDS: HEPARIN SODIUM (PORCINE) 5000 UNITS/ML 1ML VIAL SC SCH ×2 (10:25→22:21)
[2022-07-09] MEDS: HYDROcodone-ACET 5/325MG TAB PO PRN ×2 (16:15→23:28)
[2022-07-09] MEDS ORDERED: VANCOMYCIN PER PHARMACY 0 MG IV SCH (17:45)
[2022-07-09] MEDS: VANCOMYCIN 1GM/250ML 250 ML IV SCH (18:30)
[2022-07-09 22:10] VITALS: BP 157/93
[2022-07-09 22:26] VITALS: BP 157/93
[2022-07-09 23:00] VITALS: BP 159/100
[2022-07-10] MEDS: LABETALOL HCL 5 MG/ML 4ML SYRINGE IV PRN ×2 (01:38→10:51)
[2022-07-10] MEDS: HYDROcodone-ACET 5/325MG TAB PO PRN ×4 (04:20→20:13)
[2022-07-10] MEDS: D5W/SOD CHLO 0.9% 1,000 ML IV SCH (04:28)
[2022-07-10 04:56] VITALS: BP 166/104
[2022-07-10] MEDS: VANCOMYCIN 1GM/250ML 250 ML IV SCH ×2 (06:36→18:00)
[2022-07-10] MEDS: SODIUM CHLOR 0.9% PF (SALINE LOCK) 10ML VIAL/SYR IV SCH ×3 (06:36→21:22)
[2022-07-10 09:00] VITALS: BP 161/96
[2022-07-10] MEDS: cefTRIAXone 1GM/50ML D5W 50 ML IV SCH (09:00)
[2022-07-10] MEDS: ASPirin 81 mg TAB PO SCH (10:52)
[2022-07-10] MEDS: AZITHROMYCIN 500MG/ 250ML 250 ML IV SCH (10:52)
[2022-07-10] MEDS: HEPARIN SODIUM (PORCINE) 5000 UNITS/ML 1ML VIAL SC SCH ×2 (11:35→21:27)
[2022-07-10 12:56] VITALS: BP 156/106
[2022-07-10 17:00] VITALS: BP 153/103
[2022-07-10] MEDS ORDERED: HYDROcodone-ACET 10/325MG TAB PO PRN (17:00)
[2022-07-10] MEDS: BACLOFEN 10 MG TAB PO SCH ×2 (18:00→21:22)
[2022-07-10] MEDS ORDERED: SERT50TA19 PO (18:35)
[2022-07-10] MEDS ORDERED: WARF3TAB22 PO (18:35)
[2022-07-10] MEDS ORDERED: GABA300C10 PO (18:37)
[2022-07-10] MEDS ORDERED: ALPR0.5T PO (18:39)
[2022-07-10] MEDS ORDERED: DIPH50TA9 PO (18:40)
[2022-07-10] MEDS ORDERED: HYDR50TA15 PO (18:42)
[2022-07-10] MEDS ORDERED: METO25TA93 PO (18:43)
[2022-07-10] MEDS ORDERED: ARIP1TAB7 PO (18:44)
[2022-07-10] MEDS ORDERED: ZOLP10TA PO (18:45)
[2022-07-10] MEDS ORDERED: DIPHENHYDRAMINE HCL 25 MG PO SCH (19:00)
[2022-07-10] MEDS ORDERED: hydrALAZINE HCL 10 MG TAB PO PRN (19:45)
[2022-07-10 22:00] VITALS: BP 149/91
[2022-07-10] MEDS ORDERED: levETIRAcetam 500 MG TAB PO SCH (22:00)
[2022-07-10] MEDS ORDERED: ZOLPIDEM TARTRATE 5 MG TAB PO SCH (22:00)
[2022-07-10] MEDS: LISINOPRIL 10 MG TAB PO SCH (22:00)
[2022-07-10] MEDS ORDERED: GABAPENTIN 300 MG CAP PO SCH (22:00)
[2022-07-10] MEDS ORDERED: LORazepam 0.5 MG TAB PO SCH (22:00)
[2022-07-10] MEDS: amLODIPine BESYLATE 5 MG TAB PO SCH (22:00)
[2022-07-10] MEDS: METOPROLOL SUCCINATE XL 50 MG TAB PO SCH (22:00)
[2022-07-10] MEDS: ALPRAZolam 0.5 MG TAB PO SCH (23:31)
[2022-07-11] VITALS (25 sets, daily range): BP systolic 64–140; BP diastolic 40–103
[2022-07-11] MEDS: D5W/SOD CHLO 0.9% 1,000 ML IV SCH (00:19)
[2022-07-11] MEDS: HYDROcodone-ACET 5/325MG TAB PO PRN ×3 (00:22→11:34)
[2022-07-11] MEDS: VANCOMYCIN 1GM/250ML 250 ML IV SCH (05:21)
[2022-07-11] MEDS: SODIUM CHLOR 0.9% PF (SALINE LOCK) 10ML VIAL/SYR IV SCH ×3 (05:22→23:15)
[2022-07-11] MEDS: BACLOFEN 10 MG TAB PO SCH ×4 (05:26→22:00)
[2022-07-11] MEDS: ALPRAZolam 0.5 MG TAB PO SCH ×3 (05:26→17:21)
[2022-07-11] MEDS: cefTRIAXone 1GM/50ML D5W 50 ML IV SCH (09:00)
[2022-07-11] MEDS: AZITHROMYCIN 500MG/ 250ML 250 ML IV SCH (10:00)
[2022-07-11] MEDS: Aripiprazole (Abilify) 5 MG PO SCH (10:00)
[2022-07-11] MEDS ORDERED: WARFARIN SODIUM 1 MG TAB PO SCH ×2 (10:00→17:00)
[2022-07-11 11:08] LABS: INR 2.49 (0.9-1.15)
[2022-07-11] MEDS: ASPirin 81 mg TAB PO SCH (11:31)
[2022-07-11] MEDS: amLODIPine BESYLATE 5 MG TAB PO SCH ×2 (11:31→22:00)
[2022-07-11] MEDS: METOPROLOL SUCCINATE XL 50 MG TAB PO SCH ×2 (11:32→22:00)
[2022-07-11] MEDS: SERTRALINE HCL 50 MG TAB PO SCH (11:32)
[2022-07-11] MEDS: LISINOPRIL 10 MG TAB PO SCH ×2 (11:33→22:00)
[2022-07-11] MEDS: HEPARIN SODIUM (PORCINE) 5000 UNITS/ML 1ML VIAL SC SCH ×2 (11:41→23:27)
[2022-07-11] MEDS: risperiDONE 1 MG TAB PO SCH (14:30)
[2022-07-11] MEDS ORDERED: NALOXONE HCL 0.4 MG/ML VIAL ONE ×2 (17:43→18:10)
[2022-07-11] MEDS ORDERED: SODIUM CHLORIDE 0.9% 500 ML IV ONE (17:45)
[2022-07-11] MEDS ORDERED: NALOXONE HCL 0.4 MG/ML VIAL IM ONE (17:45)
[2022-07-11] MEDS ORDERED: NALOXONE HCL 0.4 MG/ML VIAL IV ONE (18:00)
[2022-07-11] MEDS ORDERED: NOREPINEPHRINE 8 MG/250ML KIT 250 ML IV ONE (18:18)
[2022-07-11] MEDS ORDERED: ETOMIDATE (2MG/ML) 20ML VIAL IV ONE ×2 (18:30→19:13)
[2022-07-11] MEDS ORDERED: MIDAZOLAM DRIP 50 mg/50mL 50 ML IV ONE ×2 (18:30→23:29)
[2022-07-11] MEDS ORDERED: SUCCINYLCHOLINE CHLORIDE 20 MG/ML 10ML VIAL IV ONE (18:31)
[2022-07-11 18:38] LABS: Basophils # (auto) 0.1 10 ^3/uL (0-0.2); Basophils % (auto) 1.1 % (0.0-2.0); Eosinophils # (auto) 0.1 10 ^3/uL (0-0.8); Eosinophils % (auto) 2.5 % (0.0-7.0); Hematocrit 40.6 % (41.0-53.0); Lymphocytes # (auto) 1.5 10 ^3/uL (0.4-5.4); Lymphocytes % (auto) 30.3 % (10.0-50.0); Mean Corpuscular Hemoglobin 29.2 pg (28.0-32.0); Mean Corpuscular Hgb Conc. 32.2 g/dL (32.0-36.0); Monocytes # (auto) 0.5 10 ^3/uL (0-1.3); Monocytes % (auto) 10.1 % (0.0-12.0); Neutrophils # (auto) 2.9 10 ^3/uL (1.6-8.6); Nucleated Red Blood Cells % 0.1 %; Red Blood Cells 4.46 10^6/uL (4.5-5.90); Red Cell Distribution Width 14.2 % (11.8-14.3); White Blood Cell 5.1 10^3/uL (4.4-10.8)
[2022-07-11 18:51] LABS: Albumin 2.9 g/dL (3.4-5.0); Calcium 8.7 mg/dL (8.5-10.1); Potassium 4.6 mmol/L (3.5-5.1)
[2022-07-11 19:00] LABS: Bilirubin, Total 0.3 mg/dL (0.2-1.0); Total Protein 6.2 g/dL (6.4-8.2)
[2022-07-11 19:08] LABS: Alcohol, Urine < 3.0 mg/dL (0-10); Amphetamine Screen, Urine NEGATIVE (NEGATIVE); Barbiturate Scree,Urine NEGATIVE (NEGATIVE); Benzodiazephine Screen, Urine POSITIVE (NEGATIVE); Cannabinoid Screen, Urine NEGATIVE (NEGATIVE); Cocaine Screen, Urine NEGATIVE (NEGATIVE); Opiate Scree,Urine POSITIVE (NEGATIVE); Phencyclidine Screen, Urine NEGATIVE (NEGATIVE)
[2022-07-11] MEDS ORDERED: ROCURONIUM 10MG/ML 10ML VIAL IV ONE ×2 (19:12)
[2022-07-11] MEDS: NOREPINEPHRINE 8 MG/250ML KIT 250 ML IV SCH ×3 (19:30→23:07)
[2022-07-11] MEDS: fentaNYL Drip 2500mCg/250mlNS 250 ML IV SCH (20:00)
[2022-07-11] MEDS: SODIUM CHLORIDE 0.9% 1,000 ML IV SCH (20:00)
[2022-07-11] MEDS: ACETAMINOPHEN 325 MG TAB PO PRN (20:17)
[2022-07-11] MEDS ORDERED: LORazepam 2MG/ML-1ML VIAL IV PRN (21:30)
[2022-07-11] MEDS: LINEZOLID 600MG/300ML 300 ML IV SCH (23:22)
[2022-07-11] MEDS: MIDAZOLAM DRIP 50 mg/50mL 50 ML IV SCH (23:51)
[2022-07-12] VITALS (103 sets, daily range): BP systolic 82–192; BP diastolic 55–111
[2022-07-12] MEDS: PHENYLEPHRINE IV 250 ML IV SCH ×3 (01:45→11:13)
[2022-07-12] MEDS: SODIUM CHLORIDE 0.9% 1,000 ML IV SCH ×4 (02:45→22:32)
[2022-07-12] MEDS: NOREPINEPHRINE 8 MG/250ML KIT 250 ML IV SCH ×5 (02:54→23:36)
[2022-07-12] MEDS: MIDAZOLAM DRIP 50 mg/50mL 50 ML IV SCH ×2 (04:26→09:40)
[2022-07-12 05:25] LABS: Basophils # (auto) 0.1 10 ^3/uL (0-0.2); Basophils % (auto) 0.6 % (0.0-2.0); Eosinophils # (auto) 0.1 10 ^3/uL (0-0.8); Eosinophils % (auto) 0.8 % (0.0-7.0); Hematocrit 36.9 % (41.0-53.0); Hemoglobin 12.4 g/dL (13.5-17.5); Lymphocytes # (auto) 1.1 10 ^3/uL (0.4-5.4); Lymphocytes % (auto) 11.5 % (10.0-50.0); Mean Corpuscular Hemoglobin 30.3 pg (28.0-32.0); Mean Corpuscular Hgb Conc. 33.5 g/dL (32.0-36.0); Mean Corpuscular Volume 90.2 fL (80.0-100.0); Monocytes # (auto) 0.7 10 ^3/uL (0-1.3); Monocytes % (auto) 6.7 % (0.0-12.0); Neutrophils # (auto) 7.9 10 ^3/uL (1.6-8.6); Neutrophils % (auto) 80.4 % (37.0-80.0); Red Blood Cells 4.09 10^6/uL (4.5-5.90); Red Cell Distribution Width 14.1 % (11.8-14.3); White Blood Cell 9.8 10^3/uL (4.4-10.8)
[2022-07-12 05:35] LABS: INR 1.89 (0.9-1.15)
[2022-07-12 05:38] LABS: Albumin 2.6 g/dL (3.4-5.0); Calcium 7.9 mg/dL (8.5-10.1); Potassium 3.7 mmol/L (3.5-5.1)
[2022-07-12 05:42] LABS: BUN/Creatinine Ratio 10.6; Bilirubin, Total 0.4 mg/dL (0.2-1.0); Total Protein 5.9 g/dL (6.4-8.2)
[2022-07-12] MEDS: ALPRAZolam 0.5 MG TAB PO SCH ×4 (06:00→17:44)
[2022-07-12] MEDS: BACLOFEN 10 MG TAB PO SCH ×4 (06:00→22:00)
[2022-07-12] MEDS: SODIUM CHLOR 0.9% PF (SALINE LOCK) 10ML VIAL/SYR IV SCH ×3 (06:14→22:22)
[2022-07-12] MEDS: LINEZOLID 600MG/300ML 300 ML IV SCH (09:39)
[2022-07-12] MEDS: ASPirin 81 mg TAB PO SCH ×2 (09:39→10:00)
[2022-07-12] MEDS: SERTRALINE HCL 50 MG TAB PO SCH (09:40)
[2022-07-12] MEDS: risperiDONE 1 MG TAB PO SCH (09:41)
[2022-07-12] MEDS: amLODIPine BESYLATE 5 MG TAB PO SCH ×2 (09:41→21:37)
[2022-07-12] MEDS: LISINOPRIL 10 MG TAB PO SCH ×2 (09:41→21:38)
[2022-07-12] MEDS: METOPROLOL SUCCINATE XL 50 MG TAB PO SCH ×2 (09:41→21:38)
[2022-07-12] MEDS: Aripiprazole (Abilify) 5 MG PO SCH (09:42)
[2022-07-12] MEDS: HEPARIN SODIUM (PORCINE) 5000 UNITS/ML 1ML VIAL SC SCH ×2 (09:42→22:22)
[2022-07-12] MEDS ORDERED: PANTOPRAZOLE 40 MG/10 ML VIAL INJ IV ONE (11:15)
[2022-07-12] MEDS: PIPERACILLIN-TAZOB 2.25GM 50 ML IV SCH ×2 (12:15→17:43)
[2022-07-12] MEDS ORDERED: AMLO-496 PO (14:41)
[2022-07-12] MEDS ORDERED: METO25TA5 PO (14:41)
[2022-07-12] MEDS ORDERED: ARIP5TAB36 PO (14:41)
[2022-07-12] MEDS ORDERED: VANCOMYCIN PER PHARMACY 0 MG IV SCH (14:45)
[2022-07-12] MEDS ORDERED: HYDR10TA26 PO (14:50)
[2022-07-12] MEDS ORDERED: ZOLP5TAB5 PO (14:50)
[2022-07-12] MEDS ORDERED: VANCOMYCIN 750mg/250ml 250 ML IV ONE (15:00)
[2022-07-12] MEDS ORDERED: WARFARIN SODIUM 1 MG TAB PO ONE (17:00)
[2022-07-12] MEDS: fentaNYL Drip 2500mCg/250mlNS 250 ML IV SCH (20:00)
[2022-07-13] VITALS (99 sets, daily range): BP systolic 103–179; BP diastolic 67–133
[2022-07-13] MEDS: PIPERACILLIN-TAZOB 2.25GM 50 ML IV SCH ×2 (00:38→06:26)
[2022-07-13] MEDS: MIDAZOLAM DRIP 50 mg/50mL 50 ML IV SCH (00:56)
[2022-07-13] MEDS: PHENYLEPHRINE IV 250 ML IV SCH ×3 (02:45→09:43)
[2022-07-13 04:46] LABS: INR 2.77 (0.9-1.15); Partial Thromboplastin Time 47.5 sec (24.6-33.4)
[2022-07-13] MEDS: ALPRAZolam 0.5 MG TAB PO SCH ×5 (06:00→23:38)
[2022-07-13] MEDS: BACLOFEN 10 MG TAB PO SCH ×4 (06:00→21:33)
[2022-07-13] MEDS: SODIUM CHLOR 0.9% PF (SALINE LOCK) 10ML VIAL/SYR IV SCH ×3 (06:26→21:36)
[2022-07-13] MEDS: SODIUM CHLORIDE 0.9% 1,000 ML IV SCH ×2 (06:27→17:26)
[2022-07-13] MEDS: Aripiprazole (Abilify) 5 MG PO SCH (08:05)
[2022-07-13] MEDS: PANTOPRAZOLE 40 MG/10 ML VIAL INJ IV SCH (08:09)
[2022-07-13] MEDS: METOPROLOL SUCCINATE XL 50 MG TAB PO SCH ×2 (08:09→21:34)
[2022-07-13] MEDS: amLODIPine BESYLATE 5 MG TAB PO SCH ×2 (08:10→21:35)
[2022-07-13] MEDS: ASPirin 81 mg TAB PO SCH (08:10)
[2022-07-13] MEDS: LISINOPRIL 10 MG TAB PO SCH ×2 (08:11→21:34)
[2022-07-13] MEDS: risperiDONE 1 MG TAB PO SCH (08:11)
[2022-07-13] MEDS: HEPARIN SODIUM (PORCINE) 5000 UNITS/ML 1ML VIAL SC SCH ×2 (08:12→21:36)
[2022-07-13] MEDS: VANCOMYCIN 750mg/250ml 250 ML IV SCH ×2 (09:43→17:31)
[2022-07-13] MEDS ORDERED: VANCOMYCIN 750mg/250ml 250 ML IV SCH (10:00)
[2022-07-13] MEDS ORDERED: cefTRIAXone 1GM/50ML D5W 50 ML IV ONE (11:15)
[2022-07-13] MEDS ORDERED: OPTISON 3ml Vial for INJ IV ONE (13:40)
[2022-07-13] MEDS: fentaNYL Drip 2500mCg/250mlNS 250 ML IV SCH (17:31)
[2022-07-13] MEDS: HYDROcodone-ACET 5/325MG TAB PO PRN (19:29)
[2022-07-13] MEDS: ZOLPIDEM TARTRATE 5 MG TAB PO PRN (22:52)
[2022-07-14] VITALS (96 sets, daily range): BP systolic 77–152; BP diastolic 52–103
[2022-07-14] MEDS: HYDROcodone-ACET 5/325MG TAB PO PRN ×3 (00:43→17:45)
[2022-07-14] MEDS: SODIUM CHLORIDE 0.9% 1,000 ML IV SCH ×3 (00:45→18:30)
[2022-07-14] MEDS: ACETAMINOPHEN 325 MG TAB PO PRN (01:12)
[2022-07-14] MEDS: VANCOMYCIN 750mg/250ml 250 ML IV SCH (01:58)
[2022-07-14] MEDS: PHENYLEPHRINE IV 250 ML IV SCH ×2 (03:54→12:05)
[2022-07-14 04:32] LABS: Basophils # (auto) 0.1 10 ^3/uL (0-0.2); Basophils % (auto) 0.8 % (0.0-2.0); Eosinophils # (auto) 0.4 10 ^3/uL (0-0.8); Eosinophils % (auto) 4.6 % (0.0-7.0); Hematocrit 33.9 % (41.0-53.0); Hemoglobin 11.3 g/dL (13.5-17.5); Lymphocytes % (auto) 11.2 % (10.0-50.0); Mean Corpuscular Hgb Conc. 33.3 g/dL (32.0-36.0); Mean Corpuscular Volume 90.1 fL (80.0-100.0); Monocytes # (auto) 0.6 10 ^3/uL (0-1.3); Monocytes % (auto) 6.7 % (0.0-12.0); Neutrophils # (auto) 6.6 10 ^3/uL (1.6-8.6); Neutrophils % (auto) 76.7 % (37.0-80.0); Red Blood Cells 3.76 10^6/uL (4.5-5.90); Red Cell Distribution Width 14.3 % (11.8-14.3); White Blood Cell 8.7 10^3/uL (4.4-10.8)
[2022-07-14 04:39] LABS: Albumin 2.3 g/dL (3.4-5.0); BUN/Creatinine Ratio 5.8; Calcium 7.4 mg/dL (8.5-10.1); Potassium 3.7 mmol/L (3.5-5.1)
[2022-07-14 04:42] LABS: Bilirubin, Total 0.2 mg/dL (0.2-1.0)
[2022-07-14 06:19] LABS: INR 2.75 (0.9-1.15)
[2022-07-14] MEDS: BACLOFEN 10 MG TAB PO SCH ×4 (06:21→21:52)
[2022-07-14] MEDS: SODIUM CHLOR 0.9% PF (SALINE LOCK) 10ML VIAL/SYR IV SCH ×3 (06:21→21:52)
[2022-07-14] MEDS: ALPRAZolam 0.5 MG TAB PO SCH ×3 (06:22→18:12)
[2022-07-14] MEDS: cefTRIAXone 1GM/50ML D5W 50 ML IV SCH (08:38)
[2022-07-14] MEDS: amLODIPine BESYLATE 5 MG TAB PO SCH ×3 (10:00→21:51)
[2022-07-14] MEDS: HEPARIN SODIUM (PORCINE) 5000 UNITS/ML 1ML VIAL SC SCH (10:00)
[2022-07-14] MEDS: LISINOPRIL 10 MG TAB PO SCH ×3 (10:00→21:51)
[2022-07-14] MEDS: Aripiprazole (Abilify) 5 MG PO SCH (10:00)
[2022-07-14] MEDS: PANTOPRAZOLE 40 MG/10 ML VIAL INJ IV SCH (10:44)
[2022-07-14] MEDS: ASPirin 81 mg TAB PO SCH (10:45)
[2022-07-14] MEDS: METOPROLOL SUCCINATE XL 50 MG TAB PO SCH ×2 (10:45→21:52)
[2022-07-14] MEDS: SERTRALINE HCL 50 MG TAB PO SCH (10:46)
[2022-07-14] MEDS: risperiDONE 1 MG TAB PO SCH (11:42)
[2022-07-14] MEDS: NOREPINEPHRINE 8 MG/250ML KIT 250 ML IV SCH (18:30)
[2022-07-14] MEDS: ZOLPIDEM TARTRATE 5 MG TAB PO PRN (21:50)
[2022-07-15] VITALS (54 sets, daily range): BP systolic 79–180; BP diastolic 47–116
[2022-07-15] MEDS: ALPRAZolam 0.5 MG TAB PO SCH ×4 (00:10→17:01)
[2022-07-15] MEDS: SODIUM CHLORIDE 0.9% 1,000 ML IV SCH ×3 (02:47→18:30)
[2022-07-15 04:38] LABS: INR 1.57 (0.9-1.15); Partial Thromboplastin Time 37.7 sec (24.6-33.4)
[2022-07-15] MEDS: BACLOFEN 10 MG TAB PO SCH ×2 (06:00→11:17)
[2022-07-15] MEDS: SODIUM CHLOR 0.9% PF (SALINE LOCK) 10ML VIAL/SYR IV SCH ×3 (06:00→22:00)
[2022-07-15] MEDS: LABETALOL HCL 5 MG/ML 4ML SYRINGE IV PRN ×3 (06:01→23:35)
[2022-07-15] MEDS: risperiDONE 1 MG TAB PO SCH (10:00)
[2022-07-15] MEDS: Aripiprazole (Abilify) 5 MG PO SCH (10:00)
[2022-07-15] MEDS: ASPirin 81 mg TAB PO SCH (11:14)
[2022-07-15] MEDS: LISINOPRIL 10 MG TAB PO SCH ×2 (11:15→22:00)
[2022-07-15] MEDS: PANTOPRAZOLE 40 MG/10 ML VIAL INJ IV SCH (11:15)
[2022-07-15] MEDS: METOPROLOL SUCCINATE XL 50 MG TAB PO SCH ×2 (11:18→22:00)
[2022-07-15] MEDS: SERTRALINE HCL 50 MG TAB PO SCH (11:19)
[2022-07-15] MEDS: amLODIPine BESYLATE 5 MG TAB PO SCH ×2 (11:19→22:00)
[2022-07-15] MEDS: cefTRIAXone 1GM/50ML D5W 50 ML IV SCH (11:21)
[2022-07-15] MEDS ORDERED: WARFARIN SODIUM 1 MG TAB PO ONE ×2 (17:00→21:01)
[2022-07-15] MEDS ORDERED: LORazepam 0.5 MG TAB PO PRN (18:15)
[2022-07-15] MEDS ORDERED: BACLOFEN 10 MG TAB PO PRN (18:15)
[2022-07-16] VITALS (52 sets, daily range): BP systolic 79–173; BP diastolic 52–111
[2022-07-16] MEDS ORDERED: ACETYLCYSTEINE 10 %(100MG/ML) SOL 4ML NEB SCH
[2022-07-16] MEDS: LABETALOL HCL 5 MG/ML 4ML SYRINGE IV PRN (04:22)
[2022-07-16 04:49] LABS: INR 1.18 (0.9-1.15); Partial Thromboplastin Time 28.8 sec (24.6-33.4)
[2022-07-16] MEDS: ACETYLCYSTEINE 10 %(100MG/ML) SOL 4ML NEB SCH ×3 (05:49→19:44)
[2022-07-16] MEDS: ALBUTEROL SULF 2.5 MG/0.5ML(0.5%) NEB SOLN NEB SCH ×3 (05:49→19:43)
[2022-07-16] MEDS: SODIUM CHLOR 0.9% PF (SALINE LOCK) 10ML VIAL/SYR IV SCH ×3 (06:00→21:15)
[2022-07-16] MEDS ORDERED: ALBUTEROL SULF 2.5 MG/0.5ML(0.5%) NEB SOLN NEB SCH (06:00)
[2022-07-16] MEDS: SODIUM CHLORIDE 0.9% 1,000 ML IV SCH ×2 (06:00→16:11)
[2022-07-16] MEDS: cefTRIAXone 1GM/50ML D5W 50 ML IV SCH (09:00)
[2022-07-16 09:46] LABS: Albumin 2.5 g/dL (3.4-5.0); Calcium 8.5 mg/dL (8.5-10.1); Potassium 4.2 mmol/L (3.5-5.1)
[2022-07-16 09:50] LABS: BUN/Creatinine Ratio 7.1; Bilirubin, Total 0.3 mg/dL (0.2-1.0); Total Protein 5.7 g/dL (6.4-8.2)
[2022-07-16] MEDS: risperiDONE 1 MG TAB PO SCH (10:00)
[2022-07-16] MEDS: PANTOPRAZOLE 40 MG/10 ML VIAL INJ IV SCH (10:00)
[2022-07-16] MEDS: METOPROLOL SUCCINATE XL 50 MG TAB PO SCH ×2 (10:00→21:15)
[2022-07-16] MEDS: ASPirin 81 mg TAB PO SCH (10:00)
[2022-07-16] MEDS: Aripiprazole (Abilify) 5 MG PO SCH (10:00)
[2022-07-16] MEDS: SERTRALINE HCL 50 MG TAB PO SCH (10:00)
[2022-07-16] MEDS: amLODIPine BESYLATE 5 MG TAB PO SCH ×2 (10:00→21:13)
[2022-07-16] MEDS: ACETAMINOPHEN 325 MG TAB PO PRN (15:47)
[2022-07-16] MEDS ORDERED: WARFARIN SODIUM 5 MG TAB PO ONE (17:00)
[2022-07-16] MEDS: LISINOPRIL 10 MG TAB PO SCH (21:14)
[2022-07-17] VITALS (21 sets, daily range): BP systolic 117–158; BP diastolic 85–99
[2022-07-17] MEDS: SODIUM CHLOR 0.9% PF (SALINE LOCK) 10ML VIAL/SYR IV SCH ×3 (06:00→22:00)
[2022-07-17] MEDS: ALBUTEROL SULF 2.5 MG/0.5ML(0.5%) NEB SOLN NEB SCH ×3 (06:14→18:00)
[2022-07-17] MEDS: ACETYLCYSTEINE 10 %(100MG/ML) SOL 4ML NEB SCH ×3 (06:15→18:00)
[2022-07-17 09:06] LABS: Alcohol, Urine < 3.0 mg/dL (0-10); Amphetamine Screen, Urine NEGATIVE (NEGATIVE); Barbiturate Scree,Urine NEGATIVE (NEGATIVE); Benzodiazephine Screen, Urine POSITIVE (NEGATIVE); Cannabinoid Screen, Urine NEGATIVE (NEGATIVE); Cocaine Screen, Urine NEGATIVE (NEGATIVE); Opiate Scree,Urine NEGATIVE (NEGATIVE); Phencyclidine Screen, Urine NEGATIVE (NEGATIVE)
[2022-07-17] MEDS: ASPirin 81 mg TAB PO SCH (09:55)
[2022-07-17] MEDS: SERTRALINE HCL 50 MG TAB PO SCH (09:55)
[2022-07-17] MEDS: METOPROLOL SUCCINATE XL 50 MG TAB PO SCH ×2 (09:55→22:43)
[2022-07-17] MEDS: PANTOPRAZOLE 40 MG/10 ML VIAL INJ IV SCH (09:55)
[2022-07-17] MEDS: risperiDONE 1 MG TAB PO SCH (10:00)
[2022-07-17] MEDS: Aripiprazole (Abilify) 5 MG PO SCH (10:00)
[2022-07-17] MEDS: LISINOPRIL 10 MG TAB PO SCH ×2 (10:00→22:44)
[2022-07-17] MEDS: amLODIPine BESYLATE 5 MG TAB PO SCH ×3 (10:00→22:42)
[2022-07-17] MEDS ORDERED: ASPI1TAB20 PO (11:50)
[2022-07-17] MEDS ORDERED: LISI-275 PO (11:50)
[2022-07-17 13:21] LABS: Basophils # (auto) 0.1 10 ^3/uL (0-0.2); Eosinophils # (auto) 0.5 10 ^3/uL (0-0.8); Eosinophils % (auto) 6.8 % (0.0-7.0); Hematocrit 37.5 % (41.0-53.0); Hemoglobin 12.6 g/dL (13.5-17.5); Lymphocytes # (auto) 1.1 10 ^3/uL (0.4-5.4); Lymphocytes % (auto) 16.4 % (10.0-50.0); Mean Corpuscular Hemoglobin 30.3 pg (28.0-32.0); Mean Corpuscular Hgb Conc. 33.7 g/dL (32.0-36.0); Mean Corpuscular Volume 89.9 fL (80.0-100.0); Monocytes # (auto) 0.7 10 ^3/uL (0-1.3); Monocytes % (auto) 10.4 % (0.0-12.0); Neutrophils # (auto) 4.5 10 ^3/uL (1.6-8.6); Neutrophils % (auto) 65.4 % (37.0-80.0); Red Blood Cells 4.17 10^6/uL (4.5-5.90); Red Cell Distribution Width 14.5 % (11.8-14.3); White Blood Cell 6.9 10^3/uL (4.4-10.8)
[2022-07-17 13:38] LABS: INR 1.63 (0.9-1.15); Partial Thromboplastin Time 31.6 sec (24.6-33.4)
[2022-07-17 13:41] LABS: BUN/Creatinine Ratio 6.4; Calcium 8.3 mg/dL (8.5-10.1); Potassium 3.9 mmol/L (3.5-5.1)
[2022-07-17] MEDS: ACETAMINOPHEN 325 MG TAB PO PRN (16:07)
[2022-07-17] MEDS ORDERED: WARFARIN SODIUM 2 MG TAB PO ONE (17:00)
[2022-07-17] MEDS ORDERED: WARFARIN SODIUM 5 MG TAB PO SCH (17:00)
[2022-07-18] VITALS (13 sets, daily range): BP systolic 114–143; BP diastolic 75–97
[2022-07-18] MEDS ORDERED: QUEtiapine FUMARATE 25 MG TAB PO ONE (00:45)
[2022-07-18] MEDS: HYDROcodone-ACET 5/325MG TAB PO PRN ×2 (04:56→18:24)
[2022-07-18 05:29] LABS: INR 1.92 (0.9-1.15); Partial Thromboplastin Time 32.9 sec (24.6-33.4)
[2022-07-18] MEDS: SODIUM CHLOR 0.9% PF (SALINE LOCK) 10ML VIAL/SYR IV SCH ×3 (06:00→22:17)
[2022-07-18] MEDS: ACETYLCYSTEINE 10 %(100MG/ML) SOL 4ML NEB SCH ×2 (07:06→12:11)
[2022-07-18] MEDS: ALBUTEROL SULF 2.5 MG/0.5ML(0.5%) NEB SOLN NEB SCH ×2 (07:06→12:10)
[2022-07-18] MEDS: ACETAMINOPHEN 325 MG TAB PO PRN (08:37)
[2022-07-18] MEDS: METOPROLOL SUCCINATE XL 50 MG TAB PO SCH ×2 (12:06→22:01)
[2022-07-18] MEDS: LISINOPRIL 10 MG TAB PO SCH ×2 (12:07→22:01)
[2022-07-18] MEDS: amLODIPine BESYLATE 5 MG TAB PO SCH ×2 (12:07→22:00)
[2022-07-18] MEDS: SERTRALINE HCL 50 MG TAB PO SCH (12:07)
[2022-07-18] MEDS: levETIRAcetam 500 MG TAB PO SCH ×2 (12:08→21:58)
[2022-07-18] MEDS: ASPirin 81 mg TAB PO SCH (12:08)
[2022-07-18] MEDS: PANTOPRAZOLE 40 MG/10 ML VIAL INJ IV SCH (12:08)
[2022-07-18 13:56] LABS: Hepatitis A Ab IgM Negative; Hepatitis B Core IgM Negative; Hepatitis C Antibody Negative (Negative)
[2022-07-18] MEDS ORDERED: WARFARIN SODIUM 2 MG TAB PO ONE (17:00)
[2022-07-18] MEDS ORDERED: QUEtiapine FUMARATE 25 MG TAB PO SCH ×2 (22:00)
[2022-07-19] MEDS: HYDROcodone-ACET 5/325MG TAB PO PRN (00:14)
[2022-07-19 05:00] VITALS: BP 128/82
[2022-07-19] MEDS: ACETYLCYSTEINE 10 %(100MG/ML) SOL 4ML NEB SCH ×4 (06:00→18:52)
[2022-07-19] MEDS: ALBUTEROL SULF 2.5 MG/0.5ML(0.5%) NEB SOLN NEB SCH ×4 (06:00→18:52)
[2022-07-19] MEDS: HYDROcodone-ACET 10/325MG TAB PO PRN ×3 (08:38→20:32)
[2022-07-19 09:12] VITALS: BP 122/66
[2022-07-19 11:09] LABS: INR 2.2 (0.9-1.15); Partial Thromboplastin Time 35.8 sec (24.6-33.4)
[2022-07-19] MEDS: ASPirin 81 mg TAB PO SCH (11:50)
[2022-07-19] MEDS: levETIRAcetam 500 MG TAB PO SCH ×2 (11:50→22:44)
[2022-07-19] MEDS: SERTRALINE HCL 50 MG TAB PO SCH (11:50)
[2022-07-19] MEDS: amLODIPine BESYLATE 5 MG TAB PO SCH ×2 (11:50→22:45)
[2022-07-19] MEDS: LISINOPRIL 10 MG TAB PO SCH ×2 (11:51→22:46)
[2022-07-19] MEDS: METOPROLOL SUCCINATE XL 50 MG TAB PO SCH ×2 (11:52→22:29)
[2022-07-19] MEDS: PANTOPRAZOLE 40 MG/10 ML VIAL INJ IV SCH (11:52)
[2022-07-19 13:00] VITALS: BP 112/82
[2022-07-19] MEDS: SODIUM CHLOR 0.9% PF (SALINE LOCK) 10ML VIAL/SYR IV SCH ×2 (14:00→22:30)
[2022-07-19] MEDS ORDERED: WARFARIN SODIUM 2 MG TAB PO ONE (17:00)
[2022-07-19 22:00] VITALS: BP 140/96
[2022-07-19] MEDS: QUEtiapine FUMARATE 25 MG TAB PO SCH (22:45)
[2022-07-20] MEDS: HYDROcodone-ACET 10/325MG TAB PO PRN ×4 (00:33→22:33)
[2022-07-20] MEDS: ACETYLCYSTEINE 10 %(100MG/ML) SOL 4ML NEB SCH ×3 (07:35→18:38)
[2022-07-20] MEDS: ALBUTEROL SULF 2.5 MG/0.5ML(0.5%) NEB SOLN NEB SCH ×3 (07:35→18:38)
[2022-07-20] MEDS: SODIUM CHLOR 0.9% PF (SALINE LOCK) 10ML VIAL/SYR IV SCH ×3 (09:30→22:35)
[2022-07-20 09:41] VITALS: BP 85/65
[2022-07-20] MEDS: amLODIPine BESYLATE 5 MG TAB PO SCH ×2 (10:00→22:00)
[2022-07-20] MEDS: METOPROLOL SUCCINATE XL 50 MG TAB PO SCH ×2 (10:00→22:00)
[2022-07-20] MEDS: LISINOPRIL 10 MG TAB PO SCH ×2 (10:00→22:00)
[2022-07-20] MEDS: SERTRALINE HCL 50 MG TAB PO SCH (10:43)
[2022-07-20] MEDS: levETIRAcetam 500 MG TAB PO SCH ×2 (10:43→22:34)
[2022-07-20] MEDS: ASPirin 81 mg TAB PO SCH (10:44)
[2022-07-20] MEDS: PANTOPRAZOLE 40 MG/10 ML VIAL INJ IV SCH (10:44)
[2022-07-20 12:49] VITALS: BP 97/51
[2022-07-20 14:20] LABS: Anion Gap 10 (5-15); Blood Urea Nitrogen 13 mg/dL (7-18); Calcium 8.2 mg/dL (8.5-10.1); Carbon Dioxide 22 mmol/L (21-32); Chloride 107 mmol/L (98-107); Glucose 80 mg/dL (74-106); Sodium 139 mmol/L (136-145)
[2022-07-20 14:22] LABS: BUN/Creatinine Ratio 8.8; GFR African American 66 mL/min; GFR Non-African American 55 mL/min
[2022-07-20 14:25] LABS: Alanine Aminotransferase 17 U/L (16-61); Alkaline Phosphatase 125 U/L (45-117); Aspartate Aminotransferase 19 U/L (15-37); Bilirubin, Total 0.2 mg/dL (0.2-1.0)
[2022-07-20 16:39] VITALS: BP 117/51
[2022-07-20 22:00] VITALS: BP 96/56
[2022-07-20] MEDS: QUEtiapine FUMARATE 25 MG TAB PO SCH (22:33)
[2022-07-21 04:30] VITALS: BP 102/72
[2022-07-21 05:00] VITALS: BP 81/43
[2022-07-21] MEDS: SODIUM CHLOR 0.9% PF (SALINE LOCK) 10ML VIAL/SYR IV SCH ×2 (07:02→13:55)
[2022-07-21] MEDS: ALBUTEROL SULF 2.5 MG/0.5ML(0.5%) NEB SOLN NEB SCH ×2 (07:29→12:00)
[2022-07-21] MEDS: ACETYLCYSTEINE 10 %(100MG/ML) SOL 4ML NEB SCH ×2 (07:30→12:00)
[2022-07-21 08:00] VITALS: BP 110/54
[2022-07-21] MEDS: amLODIPine BESYLATE 5 MG TAB PO SCH (10:00)
[2022-07-21] MEDS: LISINOPRIL 10 MG TAB PO SCH (10:00)
[2022-07-21] MEDS: METOPROLOL SUCCINATE XL 50 MG TAB PO SCH (10:00)
[2022-07-21] MEDS: SERTRALINE HCL 50 MG TAB PO SCH (10:14)
[2022-07-21] MEDS: ASPirin 81 mg TAB PO SCH (10:14)
[2022-07-21] MEDS: PANTOPRAZOLE 40 MG/10 ML VIAL INJ IV SCH (10:14)
[2022-07-21] MEDS: levETIRAcetam 500 MG TAB PO SCH (10:14)
[2022-07-21] MEDS: HYDROcodone-ACET 10/325MG TAB PO PRN ×2 (10:15→17:11)
[2022-07-21 11:41] LABS: INR 2.21 (0.9-1.15)
[2022-07-21 12:00] VITALS: BP 104/61
[2022-07-21 16:00] VITALS: BP 148/73
[2022-07-21] MEDS ORDERED: WARFARIN SODIUM 1 MG TAB PO ONE (17:00)
== END 2022-07-21 18:40 | DRG 917 ==
LOC: ER 14:23 → EDBD 14:23 → TELE 22:44 → TELE-WESTW 07-09 21:45 → ICU WEST 07-11 18:36 → DOU IN ICU 07-16 09:40 → TELE-WESTW 07-18 16:36
PROVIDERS: ADMIT Nurse Practitioner Family; ATTEND Nurse Practitioner
PROC: 02HV33Z Insertion of Infusion Device into Superior Vena Cava, Percutaneous Approach (ICD-10-PCS; 2022-07-11)
PROC: B548ZZA Ultrasonography of Superior Vena Cava, Guidance (ICD-10-PCS; 2022-07-11)
PROC: 5A1945Z Respiratory Ventilation, 24-96 Consecutive Hours (ICD-10-PCS; principal; 2022-07-12)
PROC: 0BH17EZ Insertion of Endotracheal Airway into Trachea, Via Natural or Artificial Opening (ICD-10-PCS; 2022-07-12)
DX: T40.1X1A Poisoning by heroin, accidental (unintentional), initial encounter (principal); A41.9 Sepsis, unspecified organism; G92.9 Unspecified toxic encephalopathy; J69.0 Pneumonitis due to inhalation of food and vomit; J96.01 Acute respiratory failure with hypoxia; N17.0 Acute kidney failure with tubular necrosis; R65.21 Severe sepsis with septic shock; I50.22 Chronic systolic (congestive) heart failure; G93.1 Anoxic brain damage, not elsewhere classified; N39.0 Urinary tract infection, site not specified; I69.354 Hemiplegia and hemiparesis following cerebral infarction affecting left non-dominant side; G40.409 Other generalized epilepsy and epileptic syndromes, not intractable, without status epilepticus; K52.9 Noninfective gastroenteritis and colitis, unspecified; E86.0 Dehydration; F17.210 Nicotine dependence, cigarettes, uncomplicated; F20.9 Schizophrenia, unspecified; G89.4 Chronic pain syndrome; R41.3 Other amnesia; I11.0 Hypertensive heart disease with heart failure; I51.3 Intracardiac thrombosis, not elsewhere classified; I25.10 Atherosclerotic heart disease of native coronary artery without angina pectoris; R94.01 Abnormal electroencephalogram [EEG]; I73.9 Peripheral vascular disease, unspecified; K21.9 Gastro-esophageal reflux disease without esophagitis; Z79.899 Other long term (current) drug therapy; Z82.3 Family history of stroke; Z82.49 Family history of ischemic heart disease and other diseases of the circulatory system; Z83.3 Family history of diabetes mellitus; Z86.711 Personal history of pulmonary embolism; Z86.718 Personal history of other venous thrombosis and embolism; Z89.611 Acquired absence of right leg above knee; Z89.612 Acquired absence of left leg above knee; Z95.828 Presence of other vascular implants and grafts; Y92.89 Other specified places as the place of occurrence of the external cause; Z79.01 Long term (current) use of anticoagulants; Z91.199 Patient's noncompliance with other medical treatment and regimen due to unspecified reason
CPT/HCPCS: 36415; 36600; 70450; 70551; 71045; 80048; 80053; 80074; 80202; 80307; 80320; 80329; 81001; 82140; 82565; 82805; 83605; 83880; 84484; 85025; 85610; 85730; 86703; 87040; 87070; 87077; 87081; 87086; 87186; 87205; 87426; 92507; 92610; 93005; 93306; 94002; 94003; 94640; 95819; 96365; 96366; 96368; 96375; 96376; 97163; 99291; C9113; G0378; J0330; J0696; J2250; J2405; J2543; J3490; J7042; Q9956